=== PATIENT | female | born 1975 | race Caucasian/White ===

== ENCOUNTER 2023-11-29 19:21 | Emergency (ER) | payer OTHER, MEDICAID ==
[2023-11-29] MEDS ORDERED: Morphine 10 MG/ML VIAL ONE (20:12)
== END 2023-11-29 21:36 | disposition home or self-care (01) ==
LOC: ERS 19:21
DX: S09.90XA Unspecified injury of head, initial encounter (principal); M54.50 Low back pain, unspecified; M54.6 Pain in thoracic spine; J45.909 Unspecified asthma, uncomplicated; F17.290 Nicotine dependence, other tobacco product, uncomplicated; W07.XXXA Fall from chair, initial encounter; Z55.6 Problems related to health literacy; Z79.899 Other long term (current) drug therapy; Z79.51 Long term (current) use of inhaled steroids; Z75.3 Unavailability and inaccessibility of health-care facilities
CPT/HCPCS: 70450; 72125; 72128; 72131; 96372; 99283; J2270

== ENCOUNTER 2023-11-30 21:07 | Emergency (ER) | payer OTHER, MEDICAID ==
[2023-11-30] MEDS ORDERED: lamoTRIgine 100 MG TAB PO SCH (22:00)
[2023-11-30 22:05] LABS: #Basophils 0.05 10x3/uL (0.0-0.2); %Basophils 0.7 % (0.0-1.0); %Monocytes 10.2 % (0.0-10.0); %Neutrophils 71.7 % (42.0-75.0); Hematocrit 40.6 % (36.0-47.0); Hemoglobin 12.7 g/dL (12.0-16.0); Mean Corpuscular HGB CONC 31.3 g/dL (32.0-36.0); Mean Corpuscular Hemoglobin 31.4 pg (27.0-31.0); Mean Corpuscular Volume 100.5 fL (78.0-98.0); Mean Platelet Volume 9.5 fL (7.4-10.4); Platelet Count 274 10x3/uL (130-400); RBC Distribution Width 13.3 % (11.5-14.5); Red Blood Cell (RBC) Count 4.04 mill/uL (4.20-5.40)
[2023-11-30 22:09] LABS: BHCG - Serum Negative (NEGATIVE); Pregs Control Background? CLEAR/WHITE (CLR/WHITE); Pregs Control Bar Appear? YES (CONTROL BAR)
[2023-11-30 22:17] LABS: ALT (SGPT) 27 U/L (8-55); AST (SGOT) 27 U/L (5-34); Albumin 3.5 g/dL (3.5-5.0); Alkaline Phosphatase 107 U/L (40-110); Anion Gap 10 mmol/L (10-20); BUN (Urea Nitrogen) 16 mg/dL (7.0-18.7); Bilirubin, Total 0.2 mg/dL (0.2-1.2); Calc. Creatinine Clearance 0 mL/min (70-130); Calcium 9.5 mg/dL (7.8-10.44); Carbon Dioxide 29 mmol/L (22-29); Chloride 104 mmol/L (98-107); Estimated GFR 81; Globulin 3.1 g/dL (2.4-3.5); Glucose 105 mg/dL (70-105); Potassium 4.5 mmol/L (3.5-5.1); Protein, Total 6.6 g/dL (6.0-8.3); Sodium 138 mmol/L (136-145)
== END 2023-11-30 23:06 | disposition home or self-care (01) ==
LOC: ERS 21:07
DX: R56.9 Unspecified convulsions (principal); R51.9 Headache, unspecified; F17.290 Nicotine dependence, other tobacco product, uncomplicated; W01.10XA Fall on same level from slipping, tripping and stumbling with subsequent striking against unspecified object, initial encounter
CPT/HCPCS: 36415; 70450; 72125; 80053; 83735; 84703; 85025; 93005

== ENCOUNTER 2024-02-22 04:22 | Emergency (ER) | payer OTHER, MEDICAID | END 2024-02-22 04:57 | disposition home or self-care (01) | LOC: ERS 04:22 | DX: N39.0 Urinary tract infection, site not specified (principal); M48.061 Spinal stenosis, lumbar region without neurogenic claudication; J45.909 Unspecified asthma, uncomplicated; F17.290 Nicotine dependence, other tobacco product, uncomplicated; Z79.51 Long term (current) use of inhaled steroids; Z79.899 Other long term (current) drug therapy | CPT/HCPCS: 36415; 72131; 80053; 81001; 81025; 85025; 87077; 87086; 96374; 96375; 96376; J2060; J2272; J2405 ==

== ENCOUNTER 2024-11-07 20:07 | Emergency (ER) | payer OTHER, MEDICAID ==
[2024-11-07 21:15] LABS: #Basophils 0.05 10x3/uL (0.0-0.2); #Eosinophils 0.17 10x3/uL (0.0-0.7); #Monocytes 0.74 10x3/uL (0.11-0.59); #Neutrophils 3.51 10x3/uL (1.40-6.50); %Basophils 0.8 % (0.0-1.0); %Eosinophils 2.8 % (0.0-10.0); %Lymphocytes 27.4 % (21.0-51.0); %Monocytes 12.0 % (0.0-10.0); %Neutrophils 56.8 % (42.0-75.0); Hematocrit 44.5 % (36.0-47.0); Hemoglobin 14.3 g/dL (12.0-16.0); Mean Corpuscular Hemoglobin 31.0 pg (27.0-31.0); Mean Corpuscular Volume 96.3 fL (78.0-98.0); Platelet Count 275 10x3/uL (130-400); Red Blood Cell (RBC) Count 4.62 mill/uL (4.20-5.40); White Blood Cell (WBC) Count 6.17 10x3/uL (4.8-10.8)
[2024-11-07 21:50] LABS: ALT (SGPT) 33 U/L (Less than 34); AST (SGOT) 34 U/L (11-34); Albumin 3.9 g/dL (3.1-4.5); Alkaline Phosphatase 104 U/L (40-110); Anion Gap 15 mmol/L (10-20); BUN (Urea Nitrogen) 19 mg/dL (7.0-18.7); Bilirubin, Total 0.4 mg/dL (0.3-1.2); Calc. Creatinine Clearance 0 mL/min (70-130); Calcium 9.9 mg/dL (7.8-10.44); Carbon Dioxide 27 mmol/L (22-29); Chloride 104 mmol/L (98-107); Globulin 3.2 g/dL (2.4-3.5); Glucose 91 mg/dL (70-105); Potassium 4.4 mmol/L (3.5-5.1); Sodium 142 mmol/L (136-145)
[2024-11-07] MEDS ORDERED: Acetaminophen 500 MG TAB ONE (22:15)
[2024-11-07 23:16] LABS: CAUTI Indications for Culture Alt mental st,lethar; Glucose, Urine (Dipstick) Normal (Negative); Leukocyte 75 Leu/uL (Negative); Protein, Urine (Dipstick) Negative (Neg-Trace); RBC/HPF 0-3 HPF (0-3); Specific Gravity, Urine 1.027 (1.002-1.036); WBC/HPF 21-50 HPF (0-3)
[2024-11-07 23:17] LABS: Bacteria/HPF 1+ HPF (None Seen)
[2024-11-07 23:18] LABS: Urine Culture Reflex Yes Yes
== END 2024-11-07 22:30 | disposition home or self-care (01) ==
LOC: ERS 20:07
DX: G40.909 Epilepsy, unspecified, not intractable, without status epilepticus (principal); F17.290 Nicotine dependence, other tobacco product, uncomplicated
CPT/HCPCS: 36415; 70450; 75809; 80053; 81001; 85025; 87077; 87086; 87186

== ENCOUNTER 2025-01-01 08:26 | Outpatient (CLI) | payer OTHER ==
[2025-01-01] MEDS ORDERED: Iopamidol 370 76% 100 ML VIAL ONE (09:35)
== END 2025-01-01 08:27 | disposition home or self-care (01) ==
LOC: CT 08:26
PROVIDERS: ATTEND Surgery
DX: R10.13 Epigastric pain (principal); I88.0 Nonspecific mesenteric lymphadenitis
CPT/HCPCS: 74177; Q9967

== ENCOUNTER 2025-01-27 15:22 | Emergency (ER) | payer OTHER ==
[2025-01-27 16:14] LABS: #Basophils 0.05 10x3/uL (0.0-0.2); #Eosinophils 0.15 10x3/uL (0.0-0.7); #Monocytes 0.59 10x3/uL (0.11-0.59); #Neutrophils 4.01 10x3/uL (1.40-6.50); %Basophils 0.8 % (0.0-1.0); %Eosinophils 2.3 % (0.0-10.0); %Lymphocytes 25.5 % (21.0-51.0); %Monocytes 9.1 % (0.0-10.0); %Neutrophils 62.1 % (42.0-75.0); Hematocrit 43.8 % (36.0-47.0); Hemoglobin 14.0 g/dL (12.0-16.0); Mean Corpuscular Hemoglobin 31.0 pg (27.0-31.0); Mean Corpuscular Volume 96.9 fL (78.0-98.0); Platelet Count 300 10x3/uL (130-400); Red Blood Cell (RBC) Count 4.52 mill/uL (4.20-5.40); White Blood Cell (WBC) Count 6.46 10x3/uL (4.8-10.8)
[2025-01-27 16:37] LABS: ALT (SGPT) 20 U/L (Less than 34); AST (SGOT) 29 U/L (11-34); Albumin 3.7 g/dL (3.1-4.5); Alkaline Phosphatase 104 U/L (40-110); Anion Gap 15 mmol/L (10-20); BUN (Urea Nitrogen) 8 mg/dL (7.0-18.7); Bilirubin, Total 0.4 mg/dL (0.3-1.2); Calc. Creatinine Clearance 0 mL/min (70-130); Calcium 10.0 mg/dL (7.8-10.44); Carbon Dioxide 27 mmol/L (22-29); Chloride 103 mmol/L (98-107); Globulin 3.2 g/dL (2.4-3.5); Glucose 103 mg/dL (70-105); Potassium 3.9 mmol/L (3.5-5.1); Sodium 141 mmol/L (136-145)
[2025-01-27] MEDS ORDERED: lamoTRIgine 100 MG TAB PO SCH (17:30)
== END 2025-01-27 18:17 | disposition home or self-care (01) ==
LOC: ERS 15:22
DX: R56.9 Unspecified convulsions (principal); F17.290 Nicotine dependence, other tobacco product, uncomplicated
CPT/HCPCS: 36415; 70450; 80053; 83605; 84146; 84443; 85025; 93005; 94760; 95819; 96374

== ENCOUNTER 2025-02-02 09:41 | Emergency (ER) | payer OTHER, MEDICAID ==
[2025-02-02] MEDS ORDERED: HYDROcodone/Acetaminophen 10/325 mg Tablet ONE (12:38)
[2025-02-02] MEDS ORDERED: Cyclobenzaprine 10 MG TAB ONE (14:03)
== END 2025-02-02 14:56 | disposition home or self-care (01) ==
LOC: ERS 09:41
DX: S80.12XA Contusion of left lower leg, initial encounter (principal); S60.211A Contusion of right wrist, initial encounter; F17.290 Nicotine dependence, other tobacco product, uncomplicated; W10.9XXA Fall (on) (from) unspecified stairs and steps, initial encounter
CPT/HCPCS: 29125; 70450; 72125